=== PATIENT | male | born 1960 | race Caucasian/White ===

== ENCOUNTER 2024-09-11 10:24 | Emergency (ER) | payer BC ==
[2024-09-11] MEDS: Lidocaine 1% with EPINEPHrine 1:100,000 10 ML MDV INFILT ONE (10:48)
[2024-09-11] MEDS: Diphtheria,Pertussis(Acell),Tetanus Vaccine 0.5 ML Syringe IM ONE (11:40)
[2024-09-11] MEDS: Ketorolac 30 MG/ML SDV IM ONE (12:16)
== END 2024-09-11 12:50 | disposition home or self-care (01) ==
LOC: MW.ED 10:24
DX: S82.831A Other fracture of upper and lower end of right fibula, initial encounter for closed fracture (principal); S01.01XA Laceration without foreign body of scalp, initial encounter; S93.401A Sprain of unspecified ligament of right ankle, initial encounter; Z23 Encounter for immunization; Z79.899 Other long term (current) drug therapy; Z79.891 Long term (current) use of opiate analgesic; W01.198A Fall on same level from slipping, tripping and stumbling with subsequent striking against other object, initial encounter
CPT/HCPCS: 12002; 29515; 70450; 70450-26; 73590-26-RT; 73590-RT; 73610-26-RT; 73610-RT; 73700-26-RT; 73700-RT; 90471; 90715; 96372; 99284-25; A9270-GY; J1885

== ENCOUNTER 2024-09-12 10:09 | Day surgery (SDC) | payer BC ==
[~2024-09-12 10:09] MED LIST: Albuterol 0.083% 2.5 MG/3 ML Neb Soln NEB PRN; Naloxone 0.4 MG/ML SDV IVPUSH PRN; Ondansetron 4 MG/2 ML SDV IVPUSH PRN; fentaNYL 50 MCG/ML SDV IVPUSH PRN
[2024-09-12] MEDS: Lactated Ringers 1,000 ML IV SCH (11:25)
[2024-09-12] MEDS ORDERED: Midazolam 1 MG/ML 2 ML SDV ONE (11:30)
[2024-09-12] MEDS ORDERED: fentaNYL 50 MCG/ML SDV ONE (11:30)
[2024-09-12] MEDS ORDERED: ceFAZolin 2 GM in Water For Injection, Sterile 20 ML IVPUSH ONE (12:00)
[2024-09-12] MEDS ORDERED: Propofol 200 MG/20 ML SDV ONE (12:25)
[2024-09-12] MEDS ORDERED: Dexamethasone 4 MG/ML 5 ML MDV ONE (13:58)
[2024-09-12] MEDS ORDERED: Ondansetron 4 MG/2 ML SDV ONE (13:58)
[2024-09-12] MEDS ORDERED: Ketorolac 30 MG/ML SDV ONE (15:09)
[2024-09-12] MEDS: Acetaminophen/HYDROcodone 325-5 MG Tab PO ONE (18:36)
== END 2024-09-12 19:00 | disposition home or self-care (01) ==
LOC: MW.SDS 10:09 → MW.MS 17:24 → MW.SDS 19:00
PROVIDERS: ATTEND Orthopaedic Surgery
DX: S82.871A Displaced pilon fracture of right tibia, initial encounter for closed fracture (principal); S82.832A Other fracture of upper and lower end of left fibula, initial encounter for closed fracture; Z91.041 Radiographic dye allergy status; E11.9 Type 2 diabetes mellitus without complications; Z79.899 Other long term (current) drug therapy; X58.XXXA Exposure to other specified factors, initial encounter
CPT/HCPCS: 27828; 64447; 76000; A9270; C1713; C1776; J0665; J0690; J1100; J1171; J1885; J2003; J2250; J2405; J2704; J3010; J7120; 01480; J3490